=== PATIENT | female | born 1995 | race Caucasian/White ===

== ENCOUNTER 2018-03-12 20:32 | Emergency (ER) | payer OTHER | END 2018-03-12 21:20 | disposition home or self-care (01) | LOC: FTE 20:32 | DX: H11.32 Conjunctival hemorrhage, left eye (principal); E03.9 Hypothyroidism, unspecified; J45.909 Unspecified asthma, uncomplicated; Z79.84 Long term (current) use of oral hypoglycemic drugs | CPT/HCPCS: 99282; Z7502 ==